=== PATIENT | male | born 1955 | race Caucasian/White ===

== ENCOUNTER → 2016-12-14 | Day surgery (SDC) | payer OTHER ==
[2016-12-13 14:50] VITALS: BMI 31.5
[~2016-12-14] MED LIST: DEXAMETHASONE SOD PHOSPHATE 4 MG/1 ML VIAL ONE; DEXTROSE 5%-0.45% SALINE 1,000 ML IV SCH; LACTATED RINGERS SOLUTION 1,000 ML IV SCH; LEVOFLOXACIN 250 MG IVPB ONE; LEVOFLOXACIN 500 MG IVPB 100 ML IVPB ONE; LIDOCAINE HCL/PF 2% SDV 5ML VIAL ONE; MIDAZOLAM HCL 2 MG/2 ML SINGLE DOSE VIAL ONE; ONDANSETRON 4 MG/2 ML VIAL IVPUSH PRN; PROPOFOL 20 ML ONE; oxyCODONE HCL 5 MG TABLET PO PRN
--- NOTE | 2016-12-14 10:45 | OP ---
Operative Note - Note: Operative Date: 12/14/16 Pre-Operative Diagnosis: bilateral ureteral stricture Operation: cysto/bilateral retrograde, bilateral stent exchange Post-Operative Diagnosis: Same as Pre-op Surgeon: Melchor Landis Anesthesia: General Specimens Removed: bilateral stents Operative Report Dictated: Yes
[2016-12-14 11:41] VITALS: TEMP 97.6
--- NOTE | 2016-12-14 12:16 | OP ---
DATE OF OPERATION: 12/14/2016 PREOPERATIVE DIAGNOSIS: Bilateral ureteral strictures. POSTOPERATIVE DIAGNOSIS: Bilateral ureteral strictures. PROCEDURE: Cystoscopy, retrograde pyelogram bilateral, and bilateral exchanges of ureteral stents. SURGEON: Bolivar Cifuentes MD INDICATIONS: Patient is a 61-year-old male with history of bilateral ureteral obstruction from distal ureteral strictures. He was taken to the OR and maintained with stents that are changed every 6 months. He is here for a stent exchange. DESCRIPTION OF PROCEDURE: Patient was taken to the OR, placed supine on the OR table. With cardiac monitoring administered and general anesthesia established, he was prepped and draped in dorsal lithotomy position. The 22-sheath cystoscope was introduced without difficulty. Prostatic urethra was opened, nonocclusive. The bladder was visualized, and no tumors or stones noted in the bladder. The bladder was trabeculated. Attention was turned to the right ureteral orifice. The stent was seen emanating from the right ureteral orifice. Alongside the stent, a central wire was advanced up to the right renal pelvis. This took a little bit of manipulating as the patient has severe kinking of his ureter from the chronic hydronephrosis. Once the guidewire was seen in the renal pelvis on the right, a ureteral catheter was advanced over the guidewire and contrast was injected to confirm placement in the right renal pelvis. Ureteral access catheter was then removed, and the old stent was then removed with the grasper. Then, over the remaining guidewire, a new 7-Yi 28-cm double pigtail stent was then advanced in a monorail fashion, and fluoroscopy confirmed this stent to be in good position. In similar fashion, attention was turned to the left side. A central wire was advanced into the left ureteral orifice and with some manipulation eventually into the left renal pelvis negotiating the kinks in the ureter. Over this, the ureteral catheter was advanced, contrast injected for retrograde pyelogram, confirming placement in the left renal pelvis. Ureteral catheter was then removed, and the existing ureteral stent was grasped with a grasper and removed. Over the remaining wire, a new 7-Yi 28-cm double pigtail stent was then advanced in a monorail fashion. Fluoroscopy confirmed this stent to be in good position. Huynh catheter was then placed to straight drainage. Patient was then awoken from anesthesia, transferred to recovery room in stable condition. There were no complications. Estimated blood loss minimal. BOLIVAR CIFUENTES M.D. [id number]
[2016-12-14 17:29] VITALS: BP 126/80; PULSE 60
--- NOTE | 2016-12-15 08:23 | PATH ---
Surgical Pathology Report Patient Name: BOLIVAR PICKETT Med. Rec. #: [id number] /Age/Gender: 1955 (Age: 61) / M Account: [id number] Location: [facility] Taken: 12/14/2016 Received: 12/14/2016 Reported: 12/15/2016 Physicians: Bolivar Landis M.D. Specimen(s) Received OLD STENTS LEFT & RIGHT Clinical History Bilateral urethral stricture Final Diagnosis DOPE MIXER, BILATERAL URETER, REMOVAL: URETERAL STENTS (2). Electronically Signed Lacho Lopez M.D. Gross Description Received fresh, labeled "old stent left and right," are 2 green-blue, coiled portions of tubing, consistent with ureteral stents. The specimens average 39 cm in length. No soft tissue is present. No sections are submitted, gross only. 12/14/201612/14/2016
== END | disposition home or self-care (01) ==
LOC: JASU-SURG 07:03
PROVIDERS: ATTEND Urology
PROC: BT14ZZZ Fluoroscopy of Kidneys, Ureters and Bladder (ICD-10-PCS; 2016-12-14)
PROC: 0T788DZ Dilation of Bilateral Ureters with Intraluminal Device, Via Natural or Artificial Opening Endoscopic (ICD-10-PCS; principal; 2016-12-14 09:00)
PROC: 0TP98DZ Removal of Intraluminal Device from Ureter, Via Natural or Artificial Opening Endoscopic (ICD-10-PCS; 2016-12-14 09:00)
DX: N13.5 Crossing vessel and stricture of ureter without hydronephrosis (principal)
CPT/HCPCS: 76000-TC; 88300-TC; 94760

== ENCOUNTER 2018-08-22 06:22 | Day surgery (SDC) | payer OTHER ==
[2018-08-20 15:02] VITALS: BMI 31.5
[2018-08-22] MEDS ORDERED: PROPOFOL 20 ML ONE (08:00)
[2018-08-22] MEDS ORDERED: MIDAZOLAM HCL 2 MG/2 ML SINGLE DOSE VIAL ONE (08:00)
[2018-08-22] MEDS ORDERED: LIDOCAINE HCL/PF 2% SDV 5ML VIAL ONE (08:00)
[2018-08-22] MEDS ORDERED: VANCOMYCIN 1,000 MG VIAL (RESTRICTED TO ID ONLY) ONE (08:28)
[2018-08-22] MEDS ORDERED: VANCOMYCIN 500 MG VIAL (RESTRICTED TO ID ONLY) IVPB ONE (08:35)
[2018-08-22] MEDS ORDERED: oxyCODONE HCL 5 MG TABLET PO PRN (09:27)
[2018-08-22] MEDS ORDERED: ELECTROLYTE-148 SOLN 1,000 ML IV SCH (09:30)
--- NOTE | 2018-08-22 09:35 | OP ---
Operative Note - Note: Operative Date: 08/22/18 Pre-Operative Diagnosis: bilat hydro Operation: cysto/bilat stent exchange Post-Operative Diagnosis: Same as Pre-op Surgeon: Melchor Landis Anesthesia: General Estimated Blood Loss (mls): 0 Drains & Tubes with Location: 7fr 28cm stents x 2 Operative Report Dictated: Yes
[2018-08-22] MEDS ORDERED: ONDANSETRON 4 MG/2 ML VIAL IVPUSH PRN (09:46)
--- NOTE | 2018-08-22 09:58 | OP ---
DATE OF OPERATION: 08/22/2018 PREOPERATIVE DIAGNOSIS: Bilateral hydronephrosis secondary to ureteral obstruction. POSTOPERATIVE DIAGNOSIS: Bilateral hydronephrosis secondary to ureteral obstruction. PROCEDURE: Cystoscopy, bilateral ureteral stent exchange, bilateral retrograde pyelogram. SURGEON: Melchor Landis MD INDICATION: Patient is a 63-year-old male with bilateral ureteral stricture disease and bilateral obstruction. He has been having stents for many years, that are replaced yearly. He is taken to the OR today for replacement of stents. Preoperative urine culture was negative. After informed consult was obtained, patient was taken to the OR, placed supine on the table. After cardiac monitoring administered, general anesthesia was established. He was prepped and draped in dorsal lithotomy position. The cystoscope was inserted into urethra without difficulty. Anterior urethra was normal. Prostatic urethra was open. The bladder was visualized. No tumors or stones noted in the bladder. Bilateral ureteral orifices were seen and in normal anatomic position with stents emanating from each orifice. At this point, a Sensor wire was advanced into the right ureteral orifice along the stent into the right renal pelvis. The existing stent was then removed, and a dual-lumen catheter was advanced with contrast injected for retrograde pyelogram. There was all the way down to the level of the bladder. A 7-Luxembourger 28-cm stent was then advanced in a monorail fashion over the remaining wire and the wire removed. Fluoroscopy confirmed the stent to be in good position. With the right-side exchange, attention was turned to the left side. Again, a Sensor wire was advanced alongside the existing left stent into the left renal pelvis. Using a grasper, the existing stent was then removed, and a dual-lumen catheter was advanced over the guidewire with contrast injected for a retrograde pyelogram. There was hydronephrosis down to the level of the bladder. Of note, there was bilateral hydronephrosis with kinking of ureters bilaterally, but there was no obstructing lesion. A 7-Luxembourger 28-cm stent was then advanced in a monorail fashion over the existing guidewire and the guidewire removed. Fluoroscopy confirmed the stent to be in good position. Patient then awoke from anesthesia and transferred to the recovery room in stable condition. There were no complications. Estimated blood loss: Minimal. Pillo [id number]
[2018-08-22] MEDS ORDERED: LACTATED RINGERS SOLUTION 1,000 ML IV SCH (10:00)
[2018-08-22 10:47] VITALS: TEMP 97.8
[2018-08-22 11:12] VITALS: BP 127/79; PULSE 60
--- NOTE | 2018-08-23 15:24 | PATH ---
Surgical Pathology Report Patient Name: BOLIVAR PICKETT Med. Rec. #: [id number] /Age/Gender: 1955 (Age: 63) / M Account: [id number] Location: [facility] Taken: 08/22/2018 Received: 08/22/2018 Reported: 08/23/2018 Physicians: Bolivar Landis M.D. Specimen(s) Received BILATERAL STENTS REMOVED Clinical History Bilateral hydronephrosis Final Diagnosis STENTS, BILATERAL, REMOVAL: URETERAL STENTS (2). MACROSCOPIC DIAGNOSIS. Electronically Signed Karoline Meraz M.D. Gross Description Received fresh labeled "bilateral stent," are 2 green, coiled portions of tubing, consist with ureteral stents. No soft tissue is present. No sections are submitted, gross only. /08/22/201808/22/2018
== END 2018-08-22 11:30 | disposition home or self-care (01) ==
LOC: JASU-SURG 06:22
PROVIDERS: ATTEND Urology
PROC: 0WHR8YZ Insertion of Other Device into Genitourinary Tract, Via Natural or Artificial Opening Endoscopic (ICD-10-PCS; principal; 2018-08-22 08:00)
PROC: 0TP98DZ Removal of Intraluminal Device from Ureter, Via Natural or Artificial Opening Endoscopic (ICD-10-PCS; 2018-08-22 08:00)
DX: N13.1 Hydronephrosis with ureteral stricture, not elsewhere classified (principal)
CPT/HCPCS: 76000-TC-FY; 88300-TC; 94760

== ENCOUNTER 2019-10-16 08:01 | Day surgery (SDC) | payer OTHER ==
[2019-10-15 10:43] VITALS: BMI 30.8
[2019-10-16] MEDS ORDERED: DEXAMETHASONE SOD PHOSPHATE 4 MG/1 ML VIAL ONE ×2 (08:16→11:01)
[2019-10-16] MEDS ORDERED: PROPOFOL 20 ML ONE ×3 (08:16→11:01)
[2019-10-16] MEDS ORDERED: EPHEDRINE SULFATE/0.9% NACL/PF 50 MG/10 ML SYRINGE NR ONE (08:17)
[2019-10-16] MEDS ORDERED: SUCCINYLCHOLINE CHLORIDE 200 MG/10 ML SYRINGE ONE (08:17)
[2019-10-16] MEDS ORDERED: MIDAZOLAM HCL 2 MG/2 ML SINGLE DOSE VIAL ONE (11:02)
[2019-10-16] MEDS ORDERED: oxyCODONE HCL 5 MG TABLET PO PRN ×2 (11:52→12:32)
[2019-10-16] MEDS ORDERED: ONDANSETRON 4 MG/2 ML VIAL IVPUSH PRN (11:52)
--- NOTE | 2019-10-16 12:33 | OP ---
Operative Note - Note: Operative Date: 10/16/19 Pre-Operative Diagnosis: bilat hydronephrosis Operation: bilat stent placement Post-Operative Diagnosis: Same as Pre-op Anesthesia: General Operative Report Dictated: Yes
[2019-10-16] MEDS ORDERED: DEXTROSE 5%-0.45% SALINE 1,000 ML IV SCH (12:45)
--- NOTE | 2019-10-16 13:03 | OP ---
DATE OF OPERATION: 10/16/2019 PREOPERATIVE DIAGNOSIS: Bilateral hydronephrosis. POSTOPERATIVE DIAGNOSIS: Bilateral hydronephrosis. PROCEDURE: Cystoscopy, bilateral ureteral stent exchange. SURGEON: Bolivar Cifuentes MD INDICATIONS: Patient is a 64-year-old male with bilateral hydronephrosis from bilateral obstruction at the [facility] here for a yearly stent exchange. Risks, benefits, and alternatives discussed. Baseline creatinine had been around 2.5 but most recently went to 3.2. DESCRIPTION OF PROCEDURE: After informed consent was obtained, patient was taken to the OR and placed supine on the operating room table. Cardiac monitoring administered. General anesthesia was then established. He was given 250 mg of Levaquin IV. Cystoscope was inserted without difficulty into . It was nonocclusive. The bladder was visualized. Bilateral stents were seen from each orifice. Attention was turned 1st to the left ureteral orifice. A guidewire was advanced alongside the stent to the left renal pelvis, and using a grasper, the previous stent was then removed. Over the remaining guidewire, a 7-Swazi 20-cm double pigtail stent was then advanced in a monorail fashion. Fluoroscopy confirmed the stent to be in good position. In a similar fashion on the right side, a guidewire was advanced into the right ureteral orifice alongside the stent into the right kidney. The previous stent was grasped and removed in its entirety, and over the remaining guidewire, a 7-Swazi 20-cm double pigtail stent was then advanced in a monorail fashion. Fluoroscopy confirmed the stent to be in good position. Patient was then awoken from anesthesia and transferred to the recovery room in stable condition. There were no complications. Estimated blood loss was minimal. BOLIVAR CIFUENTES M.D. [id number]
[2019-10-16 14:19] VITALS: TEMP 97.6
[2019-10-16 17:43] VITALS: BP 152/60; PULSE 68
== END 2019-10-16 17:50 | disposition home or self-care (01) ==
LOC: JASU-SURG 08:01
PROVIDERS: ATTEND Urology
PROC: 0T9880Z Drainage of Bilateral Ureters with Drainage Device, Via Natural or Artificial Opening Endoscopic (ICD-10-PCS; principal; 2019-10-16 12:11)
DX: N13.30 Unspecified hydronephrosis (principal)
CPT/HCPCS: 76000-TC-FY

== ENCOUNTER 2020-12-02 04:25 | Day surgery (SDC) | payer OTHER, MEDICARE ==
[2020-11-30 11:08] VITALS: BMI 32.3
[2020-12-02] MEDS ORDERED: PROPOFOL 20 ML ONE (07:12)
[2020-12-02] MEDS ORDERED: MIDAZOLAM HCL 2 MG/2 ML SINGLE DOSE VIAL ONE (07:13)
[2020-12-02] MEDS ORDERED: LIDOCAINE HCL/PF 2% SDV 5ML VIAL ONE (07:13)
[2020-12-02] MEDS ORDERED: DEXAMETHASONE SOD PHOSPHATE 4 MG/1 ML VIAL ONE (07:13)
[2020-12-02] MEDS ORDERED: VANCOMYCIN 500 MG VIAL (RESTRICTED TO ID ONLY) IVPB ONE (07:30)
[2020-12-02] MEDS ORDERED: VANCOMYCIN 1,000 MG VIAL (RESTRICTED TO ID ONLY) ONE (07:43)
[2020-12-02] MEDS ORDERED: oxyCODONE HCL 5 MG TABLET PO PRN (08:19)
[2020-12-02] MEDS ORDERED: ELECTROLYTE-148 SOLN 1,000 ML IV SCH (08:30)
[2020-12-02] MEDS ORDERED: SODIUM CHLORIDE 1,000 ML IV SCH (10:30)
[2020-12-02 10:58] VITALS: TEMP 97.5
[2020-12-02 12:21] VITALS: BP 154/90; PULSE 84
== END 2020-12-02 12:35 | disposition home or self-care (01) ==
LOC: JASU-SURG 04:25
PROVIDERS: ATTEND Urology
PROC: BT14YZZ Fluoroscopy of Kidneys, Ureters and Bladder using Other Contrast (ICD-10-PCS; 2020-12-02)
PROC: 0T788DZ Dilation of Bilateral Ureters with Intraluminal Device, Via Natural or Artificial Opening Endoscopic (ICD-10-PCS; principal; 2020-12-02 07:30)
PROC: 0TP98DZ Removal of Intraluminal Device from Ureter, Via Natural or Artificial Opening Endoscopic (ICD-10-PCS; 2020-12-02 07:30)
DX: N13.1 Hydronephrosis with ureteral stricture, not elsewhere classified (principal)
CPT/HCPCS: 76000-TC-FY; 88300-TC; 94760

== ENCOUNTER 2022-01-26 04:29 | Day surgery (SDC) | payer OTHER, MEDICARE ==
[2022-01-24 09:09] VITALS: BMI 34.4
[2022-01-26] MEDS ORDERED: PROPOFOL 20 ML ONE ×2 (07:19)
[2022-01-26] MEDS ORDERED: MIDAZOLAM HCL 2 MG/2 ML SINGLE DOSE VIAL ONE (07:20)
[2022-01-26] MEDS ORDERED: LIDOCAINE HCL/PF 2% SDV 5ML VIAL ONE (07:21)
[2022-01-26] MEDS ORDERED: VANCOMYCIN 1,000 MG VIAL (RESTRICTED TO ID ONLY) ONE (07:35)
[2022-01-26] MEDS ORDERED: VANCOMYCIN 500 MG VIAL (RESTRICTED TO ID ONLY) IVPB ONE (07:36)
[2022-01-26] MEDS ORDERED: DEXAMETHASONE SOD PHOSPHATE 4 MG/1 ML VIAL ONE (07:41)
[2022-01-26] MEDS ORDERED: IOHEXOL 300 MG/ML INFUS..BTL IJ ONE (07:50)
[2022-01-26] MEDS ORDERED: oxyCODONE HCL 5 MG TABLET PO PRN (08:10)
[2022-01-26] MEDS ORDERED: DEXTROSE 5%-0.45% SALINE 1,000 ML IV SCH (08:15)
[2022-01-26] MEDS ORDERED: ONDANSETRON 4 MG/2 ML VIAL IVPUSH PRN (08:27)
[2022-01-26 10:54] VITALS: BP 165/89; PULSE 78; TEMP 97.9
== END 2022-01-26 11:30 | disposition home or self-care (01) ==
LOC: JASU-SURG 04:29
PROVIDERS: ATTEND Urology
PROC: 0T788DZ Dilation of Bilateral Ureters with Intraluminal Device, Via Natural or Artificial Opening Endoscopic (ICD-10-PCS; principal; 2022-01-26 07:30)
PROC: 0T9880Z Drainage of Bilateral Ureters with Drainage Device, Via Natural or Artificial Opening Endoscopic (ICD-10-PCS; 2022-01-26 07:30)
DX: N13.1 Hydronephrosis with ureteral stricture, not elsewhere classified (principal)
CPT/HCPCS: 76000-TC-FY; 94760

== ENCOUNTER 2023-05-03 04:15 | Day surgery (SDC) | payer OTHER, MEDICARE ==
[2023-05-01 17:11] VITALS: BMI 32.1
[2023-05-03] MEDS ORDERED: PROPOFOL 40 ML ONE (07:20)
[2023-05-03] MEDS ORDERED: MIDAZOLAM HCL 2 MG/2 ML SINGLE DOSE VIAL ONE (07:20)
[2023-05-03] MEDS ORDERED: VANCOMYCIN 500 MG VIAL (RESTRICTED TO ID ONLY) IVPB ONE (07:48)
[2023-05-03] MEDS ORDERED: oxyCODONE HCL 5 MG TABLET PO PRN ×2 (08:08→08:19)
[2023-05-03] MEDS ORDERED: DEXTROSE 5%-0.45% SALINE 1,000 ML IV SCH (08:15)
[2023-05-03] MEDS ORDERED: ONDANSETRON 4 MG/2 ML VIAL IVPUSH PRN (08:19)
[2023-05-03] MEDS ORDERED: LACTATED RINGERS SOLUTION 1,000 ML IV SCH (08:30)
[2023-05-03 08:55] VITALS: RESP 18
[2023-05-03 09:56] VITALS: BP 156/73; PULSE 68; TEMP 97.1
== END 2023-05-03 11:26 | disposition home or self-care (01) ==
LOC: JASU-SURG 04:15
PROVIDERS: ATTEND Urology
PROC: 0TP98DZ Removal of Intraluminal Device from Ureter, Via Natural or Artificial Opening Endoscopic (ICD-10-PCS; 2023-05-03)
PROC: 0TP98DZ Removal of Intraluminal Device from Ureter, Via Natural or Artificial Opening Endoscopic (ICD-10-PCS; principal; 2023-05-03 07:30)
PROC: 0T788DZ Dilation of Bilateral Ureters with Intraluminal Device, Via Natural or Artificial Opening Endoscopic (ICD-10-PCS; 2023-05-03 07:30)
DX: N13.1 Hydronephrosis with ureteral stricture, not elsewhere classified (principal)
CPT/HCPCS: 76000-TC-FY; 94760; C1758; C2617

== ENCOUNTER 2024-09-02 04:05 | Day surgery (SDC) | payer OTHER, MEDICARE ==
[2024-08-29 08:57] VITALS: BMI 32.3
[2024-09-02] MEDS ORDERED: ONDANSETRON 4 MG/2 ML VIAL ONE (07:14)
[2024-09-02] MEDS ORDERED: DEXAMETHASONE SOD PHOSPHATE 4 MG/1 ML VIAL ONE (07:14)
[2024-09-02] MEDS ORDERED: PROPOFOL 20 ML ONE (07:15)
[2024-09-02] MEDS ORDERED: MIDAZOLAM HCL 2 MG/2 ML SINGLE DOSE VIAL ONE (07:15)
[2024-09-02] MEDS ORDERED: ONDANSETRON 4 MG/2 ML VIAL IVPUSH PRN (07:36)
[2024-09-02] MEDS ORDERED: oxyCODONE HCL 5 MG TABLET PO PRN ×2 (07:36→08:25)
[2024-09-02] MEDS ORDERED: LACTATED RINGERS SOLUTION 1,000 ML IV SCH (07:45)
[2024-09-02] MEDS: VANCOMYCIN 500 MG VIAL (RESTRICTED TO ID ONLY) IVPB ONE (07:52)
[2024-09-02] MEDS ORDERED: ELECTROLYTE-148 SOLN 1,000 ML IV SCH (08:30)
[2024-09-02 11:11] VITALS: BP 162/81; PULSE 81; RESP 19
[2024-09-02 11:13] VITALS: TEMP 97.3
== END 2024-09-02 11:40 | disposition home or self-care (01) ==
LOC: JASU-SURG 04:05
PROVIDERS: ATTEND Urology
PROC: BT14ZZZ Fluoroscopy of Kidneys, Ureters and Bladder (ICD-10-PCS; principal; 2024-09-02 07:30)
DX: N13.30 Unspecified hydronephrosis (principal)
CPT/HCPCS: 76000-TC-FY; 94760; C1758; C2617